=== PATIENT | female | born 1960 | race Caucasian/White ===

== ENCOUNTER → 2018-03-23 | Outpatient (REF) | payer OTHER | LOC: M LAB REF 16:22 | DX: R31.9 Hematuria, unspecified (principal) | CPT/HCPCS: 87086 ==

== ENCOUNTER → 2018-07-30 | Outpatient (REF) ==
[2018-08-01 08:06] LABS: RUBELLA IgG FOR TORCH EVAL 2.74 index (Immune >0.99)
[2018-08-01 08:06] LABS: MUMPS VIRUS IgG ANTIBODY 35.4 AU/mL (Immune >10.9); RUBEOLA IgG ANTIBODY >300.0 AU/mL (Immune >29.9)
== END ==
LOC: M LAB REF 18:46
DX: Z00.00 Encounter for general adult medical examination without abnormal findings (principal)

== ENCOUNTER → 2018-11-20 | Outpatient (REF) | payer OTHER ==
[2018-11-20 18:14] LABS: APPEARANCE, URINE CLEAR (CLEAR); BACTERIA, URINE AUTO NEGATIVE (NEGATIVE); BILIRUBIN, URINE AUTO NEGATIVE (NEGATIVE); BLOOD, URINE BLOOD NEGATIVE (NEGATIVE); COLOR, URINE YELLOW (YELLOW); GLUCOSE, URINE (UA) AUTO NEGATIVE (NEGATIVE); KETONE, URINE AUTO NEGATIVE (NEGATIVE); LEUKOCYTE ESTERASE, URINE AUTO 1+ (NEGATIVE); NITRITE, URINE AUTO NEGATIVE (NEGATIVE); PROTEIN, URINE AUTO NEGATIVE (NEGATIVE); RBC, URINE AUTO 0 /HPF (0-3); SPECIFIC GRAVITY URINE AUTO 1.015 (1.002-1.035); SQUAMOUS EPITHELIAL CELL UR AU 2 /HPF (0-6); UROBILINOGEN, URINE AUTO 0.2 mg/dL (0.0-2.0); WBC, URINE AUTO 2 /HPF (0-3)
== END ==
LOC: M SMT 17:08
PROVIDERS: ATTEND Nurse Practitioner Women's Health
DX: N20.0 Calculus of kidney (principal)

== ENCOUNTER → 2018-11-28 | Outpatient (CLI) | payer OTHER ==
--- NOTE | 2018-11-29 08:41 | REP ---
Clinical: Nephrolithiasis. Comparison: 03/23/2018. Technique: Axial noncontrast images from the lung bases to the pubic symphysis with coronal and sagittal re-formations. Findings: Stable 6 mm nephrolith in the right renal pelvis (images 49-50) is appreciated. The urinary tract system is otherwise unremarkable by noncontrast evaluation. No perinephric stranding, hydroureteronephrosis or obstructing ureteral calculi identified. Liver, spleen, pancreas, gallbladder, and bilateral adrenal glands are normal for noncontrast evaluation. The enteric system is without obstruction or acute inflammatory process. Pelvis demonstrates normal bladder and age-appropriate uterus/adnexa. Phleboliths noted in the pelvis. No ascites. No free air. No adenopathy. Abdominal aorta without aneurysm. Musculoskeletal structures are intact. Lung bases are clear. Impression: 1. Stable 6 mm nonobstructing right intrarenal calculus. No further urinary tract pathology appreciated by noncontrast evaluation. 2. No further acute abdominopelvic pathology identified. Electronically Signed by Cliff Batres MD 11/29/2018 08:32 A
== END ==
LOC: M RAD 16:28
PROVIDERS: ATTEND Nurse Practitioner Women's Health
DX: N20.0 Calculus of kidney (principal)

== ENCOUNTER → 2018-12-11 | Outpatient (CLI) | payer OTHER ==
[2018-12-11 21:07] LABS: HEMATOCRIT 42.1 % (36.0-47.0); HEMOGLOBIN 13.6 g/dl (12.0-15.5); MEAN CORPUSCULAR HEMOGLOBIN 31.7 pg (27.0-33.0); MEAN CORPUSCULAR HGB CONC 32.3 g/dl (32.0-36.5); MEAN CORPUSCULAR VOLUME 98.1 fl (80.0-96.0); PLATELET COUNT, AUTOMATED 324 10^3/uL (150-450); RED BLOOD COUNT 4.29 10^6/uL (4.00-5.40); WHITE BLOOD COUNT 7.5 10^3/uL (4.0-10.0)
[2018-12-11 21:24] LABS: INR 0.94; PROTHROMBIN TIME 12.7 SECONDS (12.1-14.4)
[2018-12-11 21:32] LABS: BLOOD UREA NITROGEN 14 MG/DL (7-18); CARBON DIOXIDE LEVEL 30 MEQ/L (21-32); CHLORIDE LEVEL 103 MEQ/L (98-107); GLOMERULAR FILTRATION RATE > 60.0 (>51); GLUCOSE, FASTING 85 MG/DL (70-100); POTASSIUM SERUM 4.7 MEQ/L (3.5-5.1); SODIUM LEVEL 138 MEQ/L (136-145)
== END ==
LOC: M SMT 15:47
PROVIDERS: ATTEND Nurse Practitioner Women's Health
DX: Z01.812 Encounter for preprocedural laboratory examination (principal); N20.0 Calculus of kidney

== ENCOUNTER → 2019-01-10 | Outpatient (CLI) | payer OTHER ==
[~2019-01-10] MED LIST: VITA30004 PO
--- NOTE | 2019-01-11 07:33 | ECGEPIP ---
Stationary ECG Study [facility] Test Date: 2019-01-10 Pat Name: YULY KWON Department: Room: - Gender: F [employer] Worker: LEVON : 1960 Requested By: Sudarshan Hernandez Order Number: [id number] Reading MD: Percy Vela Measurements Intervals [place] Rate: 63 P: 57 HI: 174 QRS: 25 QRSD: 92 T: 39 QT: 398 QTc: 407 Interpretive Statements SINUS RHYTHM Low QRS complex voltage in the limb leads Comparison tracing not on file Electronically Signed On 01-11-2019 7:32:41 EST by Percy Vela
== END ==
LOC: M EKG 16:38
PROVIDERS: ATTEND Anesthesiology
DX: Z01.818 Encounter for other preprocedural examination (principal); F32.9 Major depressive disorder, single episode, unspecified; R51 Headache; R06.83 Snoring; Z87.442 Personal history of urinary calculi

== ENCOUNTER 2019-01-17 06:14 | Day surgery (SDC) | payer OTHER ==
[~2019-01-17] VITALS: Ht 154.9 cm; Wt 92.5 kg
[~2019-01-17 06:14] MED LIST changes: +LR 1,000 ML IV ONE
[2019-01-17] MEDS ORDERED: LIDOCAINE 2% INJ 100 MG/5 ML SDV (FOR ANES.) As Ordered ONE (07:16)
[2019-01-17] MEDS ORDERED: PROPOFOL 500 MG/50 ML VIAL As Ordered ONE (07:16)
[2019-01-17] MEDS ORDERED: ONDANSETRON 4MG/2ML VIAL (J2405) As Ordered ONE (07:42)
[2019-01-17] MEDS ORDERED: dexameTHASONE 4 MG/ML 1ML VIAL (J1100) As Ordered ONE (07:42)
[2019-01-17 08:11] VITALS: BP 114/55
--- NOTE | 2019-01-17 08:37 | REP ---
Supine abdomen single AP view: Comparison is the abdomen and pelvis CT dated 11/28/2018. There is a faintly visible small rounded structure projected within the right renal hilus measuring 5 mm, possibly a right renal calculus. This corresponds to a calculus in this location on the comparison CT. By CT. This measured 6 mm. There are no calculi projected over the left kidney. There are multiple pelvic calcifications bilaterally, likely phleboliths. The bowel gas pattern is normal. Skeletal structures and soft tissues otherwise are unremarkable. Electronically Signed by Ajay Sommers MD 01/17/2019 08:28 A
--- NOTE | 2019-01-17 13:00 | RO ---
DATE OF PROCEDURE: 01/17/2019 PREPROCEDURE DIAGNOSIS: Right kidney stone. POSTPROCEDURE DIAGNOSIS: Right kidney stone. PROCEDURE: Right extracorporeal shock wave lithotripsy. SURGEON: Estuardo Maddox MD [employer] OPERATOR: None. ANESTHESIA: Monitored anesthesia care (MAC). OPERATIVE INDICATION: This is a 58-year-old female who was found to have an approximately 6 mm right kidney stone. She was brought to the operating room today for the above listed procedure. DESCRIPTION OF PROCEDURE: The patient was brought to the operating room where MAC anesthesia was administered. Prophylactic antibiotics were infused. She was then placed in supine position in preparation for the above listed procedure. At this point, fluoroscopy was utilized to monitor stone position and fragmentation. Shock waves were then delivered to the right side kidney stone, ungated. There was no arrhythmias. The stone did appear to fragment well. After 2500 shocks the procedure was concluded. The patient was then awakened from anesthesia and transported to the recovery room in stable condition. ESTIMATED BLOOD LOSS: 0 mL. COMPLICATIONS: None. SPECIMENS: None. PLAN: The patient will follow-up in the clinic in a few weeks with imaging prior to assess for residual stone burden. WILLIAN
== END 2019-01-17 08:51 | disposition home or self-care (01) ==
LOC: M SDC 06:14
PROVIDERS: ATTEND Urology
DX: N20.0 Calculus of kidney (principal); F32.9 Major depressive disorder, single episode, unspecified
CPT/HCPCS: 50590; 74018; J0690; J1100; J2405

== ENCOUNTER → 2019-02-07 | Outpatient (CLI) | payer BC ==
[~2019-02-07] MED LIST changes: -LR 1,000 ML IV ONE
--- NOTE | 2019-02-07 15:55 | REP ---
Clinical: Kidney stone. Comparison: 01/17/2019. Technique: Single supine view of the abdomen and pelvis. Findings: Evaluation is somewhat limited by technique and overlying bowel gas. Conglomerate of few small nonobstructing right intrarenal calculi are suggested measuring in total approximately 6 mm. Calcifications in the pelvis remains stable and likely represent phleboliths. Bowel gas pattern is nonspecific. No organomegaly. Skeletal structures demonstrate stable degenerative changes. Impression: Conglomerate focus of small stones in the right renal pelvis measuring up to approximately 6 mm suggested. Electronically Signed by Cliff Batres MD 02/07/2019 03:46 P
== END ==
LOC: M SMT 15:12
PROVIDERS: ATTEND Nurse Practitioner Women's Health
DX: N20.0 Calculus of kidney (principal)

== ENCOUNTER → 2021-07-27 | Outpatient (REF) | payer BC | LOC: M LAB REF 10:59 | PROVIDERS: ATTEND Nurse Practitioner Adult Health | DX: L60.8 Other nail disorders (principal) ==

== ENCOUNTER → 2022-07-12 | Outpatient (REF) | payer OTHER, BC | LOC: M LAB REF 12:00 | PROVIDERS: ATTEND Nurse Practitioner Adult Health | DX: N39.0 Urinary tract infection, site not specified (principal) ==

== ENCOUNTER → 2023-08-30 | Day surgery (SDC) | payer OTHER ==
[~2023-08-30] VITALS: Ht 154.9 cm; Wt 84.9 kg
[~2023-08-30] MED LIST changes: +LIDOCAINE 2% 100MG/5ML SDV (FOR ANES.) As Ordered ONE; +NS 1,000 ML IV ONE; +SEMA2.4P SC; +SYNT75TA PO; +propofoL 200 MG/20 ML VIAL As Ordered ONE
[2023-08-30 14:41] VITALS: TEMP 97
[2023-08-30 14:56] VITALS: BP 130/61; O2SAT 98
== END | disposition home or self-care (01) ==
LOC: M OPP 12:52
PROVIDERS: ATTEND Internal Medicine Gastroenterology
DX: Z12.11 Encounter for screening for malignant neoplasm of colon (principal); Z12.12 Encounter for screening for malignant neoplasm of rectum; D12.0 Benign neoplasm of cecum; K64.0 First degree hemorrhoids